=== PATIENT | male | born 1955 | race African-American/Black ===

== ENCOUNTER → 2016-04-17 | Outpatient (CLI) | payer BC | LOC: MHCPAIN 09:20 | DX: G89.29 Other chronic pain (principal); M50.10 Cervical disc disorder with radiculopathy, unspecified cervical region; M47.817 Spondylosis without myelopathy or radiculopathy, lumbosacral region; M53.3 Sacrococcygeal disorders, not elsewhere classified | CPT/HCPCS: G0463 ==

== ENCOUNTER → 2016-04-25 | Outpatient (CLI) | payer BC | LOC: MHCPAIN 08:37 | DX: M50.33 Other cervical disc degeneration, cervicothoracic region (principal) | CPT/HCPCS: J1100; Q9967 ==

== ENCOUNTER → 2016-05-20 | Outpatient (CLI) | payer BC | LOC: MHCPAIN 10:57 | DX: G89.29 Other chronic pain (principal); M50.90 Cervical disc disorder, unspecified, unspecified cervical region; M54.12 Radiculopathy, cervical region | CPT/HCPCS: G0463 ==